=== PATIENT | male | born 1960 | race Two or more races ===

== ENCOUNTER 2025-08-22 11:59 | Inpatient (IN) | payer OTHER ==
[~2025-08-22] VITALS: Ht 138.4 cm; Wt 73.4 kg
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
[2025-08-22 13:32] LABS: Chloride 103 mmol/L (98-107)
[2025-08-22 13:33] LABS: Anion Gap 10 (5-15); Carbon Dioxide 22 mmol/L (20-31)
[2025-08-22 13:34] LABS: Calcium 9.4 mg/dL (8.7-10.4)
[2025-08-22 13:38] LABS: BUN/Creatinine Ratio 21.1 (10.0-20.0); Hematocrit 48.2 % (41.0-53.0); Hemoglobin 16.0 g/dL (13.5-17.5); Mean Corpuscular Hemoglobin 28.8 pg (28.0-32.0); Mean Corpuscular Volume 86.7 fL (80.0-100.0); Nucleated Red Blood Cells % 0.0 %
[2025-08-22 13:48] LABS: Blood Urea Nitrogen 38 mg/dL (9-23); Glucose 329 mg/dL (74-106); Potassium 5.4 mmol/L (3.5-5.1); Sodium 135 mmol/L (136-145)
--- NOTE | 2025-08-22 14:06 | DVH ---
XY CHEST TWO VIEWS ROUTINE CLINICAL HISTORY: cp COMPARISON: None TECHNIQUE: Frontal and lateral view of the chest was obtained FINDINGS: Lines and Tubes: None Lungs: No focal consolidation. Pleura: No effusion. No pneumothorax. Cardiomediastinal contours: Unremarkable Bones: No acute osseous abnormality. IMPRESSION: No acute cardiopulmonary disease.
--- NOTE | 2025-08-22 19:20 | ECG ---
[facility] [place] Test Date: 2025-08-22 Test Time: 14:56:33 Pat Name: ROBERTO CARLOS CORNELIUS Department: [facility] ED Patient ID: [id number] Room: 0218T Gender: M Registration Rep: : 1960 Requested By: CHRISTOPH FONG Order Number: [id number] Reading MD: Rufus Temple Measurements Intervals [place] Rate: 98 P: 64 NV: 146 QRS: -74 QRSD: 136 T: 29 QT: 394 QTc: 504 Interpretive Statements Sinus rhythm Right bundle branch block Inferior infarct, old Abnormal lateral Q waves Baseline wander in lead(s) II,III,aVF Electronically Signed On 08-27-2025 14:20:05 PDT by Rufus Temple Please click the below link to view image of tracing.
--- NOTE | 2025-08-22 19:20 | ECG ---
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
[2025-08-22] MEDS ORDERED: ACETAMINOPHEN 325 MG TAB PO PRN (21:00)
[2025-08-22] MEDS ORDERED: ONDANSETRON HCL 4 MG/2 ML VIAL IV PRN (21:00)
[2025-08-22] MEDS ORDERED: DEXTROSE (50%) 50ML SYRG IV PRN (21:00)
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
[2025-08-22 21:30] LABS: Alanine Aminotransferase 21.0 U/L (7-40); Albumin 4.4 g/dL (3.2-4.8); Alkaline Phosphatase 108.0 U/L (46-116); Bilirubin, Direct 0.1 mg/dL (<0.3); Bilirubin, Total 0.5 mg/dL (0.2-1.0); Total Protein 7.4 g/dL (5.7-8.2)
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
--- NOTE | 2025-08-22 22:05 | DVH ---
EXAM: CT HEAD WITHOUT CONTRAST INDICATION: evaluate for mass TECHNIQUE: CT images of the head were obtained without administration of IV contrast. CT scans at [facility] facility use dose modulation, iterative reconstruction, and/or weight based dosing when appropriate to reduce radiation dose to as low as reasonably achievable. COMPARISON: None FINDINGS: PARENCHYMA: No acute hemorrhage. There is no mass effect, midline shift, or herniation. There is pres ervation of the aguilar white differentiation. Mild scattered hypoattenuation along the periventricular, centrum semiovale, and deep white matter tracts, which are nonspecific however statistically most li frances represent chronic microvascular ischemic change. VENTRICLES: No hydrocephalus. EXTRA-AXIAL SPACES: No extra-axial fluid collections. OTHER: The bony structures are intact. Inconspicuous air-fluid level with osteoneogenesis of the rig ht maxillary sinus IMPRESSION: 1. No CT evidence of an acute intracranial abnormality.
--- NOTE | 2025-08-22 22:13 | ECG ---
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
[2025-08-23 05:33] LABS: Hematocrit 43.7 % (41.0-53.0); Hemoglobin 14.7 g/dL (13.5-17.5); Mean Corpuscular Hemoglobin 29.0 pg (28.0-32.0); Mean Corpuscular Volume 86.3 fL (80.0-100.0); Nucleated Red Blood Cells % 0.0 %
[2025-08-23 05:56] LABS: Alanine Aminotransferase 18 U/L (7-40); Albumin 4.3 g/dL (3.2-4.8); Alkaline Phosphatase 99 U/L (46-116); Anion Gap 13 (5-15); BUN/Creatinine Ratio 23.8 (10.0-20.0); Bilirubin, Total 0.4 mg/dL (0.2-1.0); Blood Urea Nitrogen 43 mg/dL (9-23); Calcium 9.1 mg/dL (8.7-10.4); Carbon Dioxide 22 mmol/L (20-31); Chloride 101 mmol/L (98-107); Glucose 311 mg/dL (74-106); Potassium 4.9 mmol/L (3.5-5.1); Sodium 136 mmol/L (136-145); Total Protein 7.7 g/dL (5.7-8.2)
[2025-08-23 08:00] VITALS: PULSE 99; RESP 18; O2SAT 97
[2025-08-23 08:41] LABS: Amphetamine Screen, Urine Pos (NEGATIVE); Barbiturate Scree,Urine Neg (NEGATIVE); Benzodiazephine Screen, Urine Neg (NEGATIVE); Cannabinoid Screen, Urine Neg (NEGATIVE); Cocaine Screen, Urine Neg (NEGATIVE); Opiate Scree,Urine Neg (NEGATIVE); Phencyclidine Screen, Urine Neg (NEGATIVE)
[2025-08-23 08:42] LABS: Urine Protein, UAD TRACE (Negative)
[2025-08-23] MEDS ORDERED: DEXTROSE (50%) 50ML SYRG IV PRN (11:00)
[2025-08-23 12:44] LABS: Hematocrit 42.7 % (41.0-53.0); Hemoglobin 14.2 g/dL (13.5-17.5); Mean Corpuscular Hemoglobin 28.5 pg (28.0-32.0); Mean Corpuscular Volume 85.9 fL (80.0-100.0); Nucleated Red Blood Cells % 0.0 %
[2025-08-23 12:53] LABS: Chloride 103 mmol/L (98-107); Potassium 4.4 mmol/L (3.5-5.1)
[2025-08-23 12:54] LABS: Anion Gap 10 (5-15); Carbon Dioxide 22 mmol/L (20-31); Sodium 135 mmol/L (136-145)
[2025-08-23 12:55] LABS: Calcium 8.7 mg/dL (8.7-10.4)
[2025-08-23 12:59] LABS: BUN/Creatinine Ratio 25.2 (10.0-20.0)
[2025-08-23 13:01] LABS: Blood Urea Nitrogen 37 mg/dL (9-23); Glucose 345 mg/dL (74-106)
[2025-08-23] MEDS: InsuLIN REG 1unit/0.01ml Soln (100units/ml) IV ONE (13:07)
[2025-08-23] MEDS: SODIUM ZIRCONIUM CYCL 10 GM PAK PO ONE (13:07)
[2025-08-23] MEDS: DEXTROSE (50%) 50ML SYRG IV ONE (13:07)
[2025-08-23] MEDS: SODIUM CHLORIDE 0.9% 1,000 ML IV ONE (13:07)
[2025-08-23] MEDS: InsuLIN REG 1unit/0.01ml Soln (100units/ml) SC SCH ×3 (13:09→22:00)
[2025-08-23] MEDS: ATORVASTATIN 20 MG TAB PO SCH (13:14)
[2025-08-23] MEDS: ENOXAPARIN SOD 40 MG/0.4 ML SYRINGE SC SCH (13:15)
[2025-08-23] MEDS: INSULIN LANTUS (GLARGINE) 1 /0.01ml (100units/ml) SC SCH (13:16)
[2025-08-23] MEDS: ACCU-CHEK COMFORT CURVE STRIP VI SCH ×2 (13:23→13:24)
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
[2025-08-23 16:33] VITALS: BP 136/88; PULSE 98; RESP 17; TEMP 97; TEMP 97.7; O2SAT 99
[2025-08-23 16:44] VITALS: RESP 18; O2SAT 95
[2025-08-23 16:47] VITALS: BP_SYST 136; BP_SYST 157; BP_DIAS 111; BP_DIAS 88; PULSE 98; RESP 18; TEMP 97.7; O2SAT 98
[2025-08-23 20:00] VITALS: PULSE 91; RESP 17; O2SAT 95
[2025-08-23 21:00] VITALS: BP 121/81; PULSE 89; RESP 18; TEMP 98.2; O2SAT 93
[2025-08-24] VITALS (9 sets, daily range): BP systolic 102–149; BP diastolic 71–98; PULSE 85–108; RESP 14–20; TEMP 97.9–98.3; O2SAT 95–99
[2025-08-24 07:10] LABS: Hematocrit 43.1 % (41.0-53.0); Hemoglobin 14.5 g/dL (13.5-17.5); Mean Corpuscular Hemoglobin 28.8 pg (28.0-32.0); Mean Corpuscular Volume 85.4 fL (80.0-100.0); Nucleated Red Blood Cells % 0.1 %
[2025-08-24 07:14] LABS: Anion Gap 11 (5-15); Calcium 9.2 mg/dL (8.7-10.4); Carbon Dioxide 23 mmol/L (20-31); Chloride 104 mmol/L (98-107); Potassium 3.8 mmol/L (3.5-5.1); Sodium 138 mmol/L (136-145)
[2025-08-24 07:20] LABS: BUN/Creatinine Ratio 25.2 (10.0-20.0)
[2025-08-24 07:21] LABS: Blood Urea Nitrogen 30 mg/dL (9-23); Glucose 129 mg/dL (74-106)
[2025-08-24 12:03] LABS: Hepatitis B Surface Antigen Negative (Negative); Hepatitis C Antibody Negative (Negative)
[2025-08-24] MEDS: MORPHINE SULFATE INJ 2 MG/ml SYRG IV PRN (12:15)
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
[2025-08-24] MEDS: POLYETHYLENE GLYCOL 17 GM PWDR PO ONE (16:14)
--- NOTE | 2025-08-24 16:45 | DVHPN2 ---
Subjective I am assuming the care of the patient from today onwards. Patient is complaining of chest pain. Changes from previous H/P or p: No Changes Eyes: No Pain, No Vision change, No Conjunctivae inflammation, No Eyelid inflammation, No Other, No Redness ENT: No Ear pain, No Ear discharge, No Nose pain, No Nose discharge, No Nose congestion, No Mouth pain, No Mouth swelling, No Throat pain, No Throat swelling, No Other Cardiovascular: Chest Pain; No Palpitations, No Orthopnea, No Paroxysmal Noc. Dyspnea, No Edema, No Lt Headedness, No Other Respiratory: No Cough, No Dry, No Shortness of breath, No SOB with excertion, No Wheezing, No Hemoptysis, No Pleuritic Pain, No Sputum, No Other Genitourinary: No Dysuria, No Frequency, No Incontinence, No Hematuria, No Retention, No Other Skin: No Rash, No Lesions, No Jaundice, No Bruising, No Other Objective Vitals Vital Signs Date Time Temp Pulse Resp B/P (MAP) Pulse Ox O2 Delivery O2 Flow Rate FiO2 08/24/25 13:00 98.3 85 18 149/87 (107) 99 98.3 08/24/25 08:00 Room Air* 0 21 Intake/Output Intake and Output 08/24/25 07:00 Intake Total 1300 ml Output Total 300 ml Balance 1000 ml Intake Oral 300 ml IV Total 1000 ml Output Urine Total 300 ml # Voids 1 Exam HEENT pupils are reactive Neck is supple CV is S1-S2 regular rate and rhythm Respiratory are clear GI positive bowel sound 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 Medications Current Medications Medications Dose Ordered Sig/Lydia Route Start Time Stop Time Status Last Admin Dose Admin Acetaminophen/ Hydrocodone Bitart 1 tab Q4HP PRN PO 08/22/25 21:00 Ondansetron HCl 4 mg Q4HP PRN IV 08/22/25 21:00 Acetaminophen 650 mg Q6HP PRN PO 08/22/25 21:00 Morphine Sulfate 2 mg Q4HPRN PRN IV 08/22/25 21:00 08/24/25 12:15 2 MG Enoxaparin Sodium 40 mg DAILY SC 08/22/25 21:00 08/24/25 09:46 40 MG Insulin Glargine 15 units HS SC 08/22/25 22:00 08/23/25 22:00 15 UNITS Dextrose 50 ml UD PRN IV 08/22/25 21:00 Cancel Aspirin 81 mg DAILY PO 08/23/25 10:00 08/24/25 09:46 81 MG Atorvastatin Calcium 40 mg HS PO 08/22/25 22:00 08/23/25 23:08 40 MG Diagnostic Test (Pha) 1 strip ACHS 08/23/25 11:30 08/24/25 16:28 1 STRIP Insulin Human Regular HS SC 08/23/25 22:00 08/23/25 22:00 2 UNITS Insulin Human Regular AC SC 08/23/25 11:30 08/24/25 16:28 3 UNITS Dextrose 50 ml UD PRN IV 08/23/25 11:00 Laboratory Results Laboratory Tests 08/24/25 05:14 Chemistry Test 08/24/25 05:14 Calcium Level 9.2 mg/dL (8.7-10.4) Coagulation Test 08/24/25 16:23 Prothrombin Time Pending Prothrombin Time INR Pending Activated Partial Thromboplast Time Pending Urinalysis Test 08/22/25 08:10 Urine Color Light-yellow (Yellow) Urine Clarity Clear (Clear) Urine pH 5.0 (5.0-9.0) Urine Specific [place] 1.024 (1.001-1.035) Urine Protein Trace (Negative) H Urine Ketones 1+ (Negative) H Urine Blood Negative /uL (Negative) Urine Nitrite Negative (Negative) Urine Bilirubin Negative (Negative) Urine Urobilinogen Normal mg/dL (Negative) Urine Leukocyte Esterase Negative /uL (Negative) Urine RBC 2 /hpf (0 - 3) Urine Microscopic WBC 1 /HPF (0-3) Urine Squamous Epithelial Cells Few /hpf (<5) Urine Bacteria None seen /hpf (None Seen) Urine Glucose 4+ mg/dL (Normal) H Assessment/Plan Assessment/Plan 65-year-old male with a known history of hypertension, diabetes mellitus type 2, previous history of valley fever, chronic methamphetamine use presented to the hospital with chest pain found to have 1. Chest pain with a mildly elevated troponin NSTEMI ruled out acute [place] 2. Syncope 3. Diabetes mellitus type 2 4. Hypertension 5. Acute kidney injury suspected secondary to vasomotor nephropathy currently improving 6. Chronic methamphetamine use 7. History of valley fever -continue current management, 2D echo, cardiology consultation. Plan discussed with: Patient Date of Service: Aug 24, 2025 Billing Provider: THOMAS SPEARS MD Common Visit Codes: [id number] INP/OBS CARE(HIGH) THOMAS SPEARS MD Aug 24, 2025 16:44
[2025-08-24 17:04] LABS: INR 1.0 (0.9-1.15); Partial Thromboplastin Time 34.9 SEC (24.5-34.5); Prothrombin Time 10.6 sec (9.3-11.8)
[2025-08-24 17:17] LABS: Free T4 (Free Thyroxine) 0.86 ng/dL (0.89-1.76)
[2025-08-24] MEDS ORDERED: METOPROLOL SUCCINATE XL 50 MG TAB PO ONE (18:15)
--- NOTE | 2025-08-24 18:30 | DVHSR ---
APPROVED REPORT EXAM: Two-dimensional and M-mode echocardiogram with Doppler and color Doppler. Blood Pressure: 123/68 mmHg INDICATION Chest Pain RISK FACTORS Height: 62, Weight: 126 DIMENSIONS LVDd3.6 (3.8-5.7cm)LA (2D)3.5 (1.9-4.0cm)Aortic Root3.9 (2.0-3.7cm) LVDs2.2 (2.5-4.0cm)LA (MM) (1.9-4.0cm)Aortic Cusp Exc1.5 (1.5-2.0cm) EF (%) 72.0 (55-70%)Rt. Atrium (1.9-4.0cm)Asc. Aorta cm Mitral Valve MitralMitral Stenosis E wave0.87m/sMV Mean GR.mmHg A wave1.22m/sMV Peak GR.mmHg E/A ratio0.72D MVAcm2 DECEL [id number] 1/2 Timems Aortic Valve Aortic ValveAortic Stenosis V10.82m/Hyacinth Mean GR.2mmHg V21.00m/Hyacinth Peak GR.4mmHg LVOT Diameter2.0 (1.8-2.4cm)Doppler AVA2.57cm2 Tricuspid Valve TR Velocity2.44m/s [id number] Conclusion lvef 65% mioderate LVH normal rv function no severe valve abnormalities noted
[2025-08-24] MEDS: METOPROLOL SUCCINATE XL 50 MG TAB PO ONE (18:55)
[2025-08-25] VITALS (10 sets, daily range): BP systolic 98–143; BP diastolic 63–96; PULSE 62–93; RESP 16–20; TEMP 97.6–98.5; O2SAT 97–100
[2025-08-25] MEDS: METOPROLOL SUCCINATE XL 50 MG TAB PO SCH (08:43)
--- NOTE | 2025-08-25 14:24 | DVHPN2 ---
Consult Progress Note Subjective Other Systems: The patient is in normal sinus rhythm on registered radiation therapist at time of assessment. The patient is still complaining of chest pain at time of assessment Objective vital signs Vital Sign Date Time Temp Pulse Resp B/P (MAP) Pulse Ox O2 Delivery O2 Flow Rate FiO2 08/25/25 12:58 97.6 80 18 119/82 (94) 98 97.6 08/25/25 08:30 Room Air* 0 21 Total Intake and Output 08/24/25 08/24/25 08/25/25 15:00 23:00 07:00 Intake Total 580 ml 500 ml Output Total 300 ml 400 ml Balance 280 ml 100 ml medications Current Medications Medications Dose Ordered Sig/Lydia Route Start Time Stop Time Status Last Admin Dose Admin Acetaminophen/ Hydrocodone Bitart 1 tab Q4HP PRN PO 08/22/25 21:00 Ondansetron HCl 4 mg Q4HP PRN IV 08/22/25 21:00 Acetaminophen 650 mg Q6HP PRN PO 08/22/25 21:00 Morphine Sulfate 2 mg Q4HPRN PRN IV 08/22/25 21:00 08/25/25 10:08 2 MG Enoxaparin Sodium 40 mg DAILY SC 08/22/25 21:00 08/25/25 08:42 40 MG Insulin Glargine 15 units HS SC 08/22/25 22:00 08/24/25 22:07 15 UNITS Dextrose 50 ml UD PRN IV 08/22/25 21:00 Cancel Aspirin 81 mg DAILY PO 08/23/25 10:00 08/25/25 08:42 81 MG Atorvastatin Calcium 40 mg HS PO 08/22/25 22:00 08/24/25 22:14 40 MG Diagnostic Test (Pha) 1 strip ACHS 08/23/25 11:30 08/25/25 11:32 1 STRIP Insulin Human Regular HS SC 08/23/25 22:00 08/24/25 22:07 3 UNITS Insulin Human Regular AC SC 08/23/25 11:30 08/25/25 11:34 9 UNITS Dextrose 50 ml UD PRN IV 08/23/25 11:00 Metoprolol Succinate 25 mg DAILY PO 08/25/25 10:00 08/25/25 08:43 25 MG Examination: GENERAL:Normal, LUNGS:Normal, CVS:Normal, NEURO:Normal laboratory and microbiology Laboratory Tests 08/24/25 05:14 Test 08/24/25 05:14 Range/Units Serum Glucose 129 #H 74-106 mg/dL Problem List/Assessment/Plan Problem List/Assessment/Plan NSTEMI, rule out coronary artery disease Syncope, rule out cardiac etiology Hypertension Type 2 diabetes mellitus, uncontrolled (Hgb A1C >14%) Acute kidney injury, resolving History of valley fever Methamphetamine use Plan/recommendations (Dr. Persaud): Plan discussed with . A transthoracic echocardiogram reveals an EF of 65%. The patient continues to report chest pain. Given patient elevated troponin level and multiple comorbidities, the patient was offered a coronary angiogram with left heart catheterization. The procedure was discussed with the patient in full detail including risks and benefits. Risks include but are not limited to bleeding, contrast-induced nephropathy, coronary dissection, stroke, and even . The patient understands and is agreeable to undergo the procedure. We will tentatively schedule the patient on 08/27/2025. In the meantime, continue with single antiplatelet therapy and lipid-lowering agent. Continue with close cardiac surveillance and notify cardiology team immediately for any ECG changes. Thank you for allowing us to care for this patient. Please call with any questions or concerns. This medical document was created using an electronic medical record system with voice recognition software and computerized dictation system. Although this document has been carefully reviewed, there might still be some phonetic and typographical errors. Occasional wrong-word or ``sound-alike substitutions may have occurred due to the inherent limitations of voice recognition software. These areas are purely typographical due to imperfections of the software programs and do not reflect any compromise in the patient's medical care. Please read the chart carefully and recognize, using context, where these substitutions have occurred. Plan discussed with: Patient Dietary Evaluation Review Recommendations by RD: Dietary education by RD Comments: 1) Continue 45g [facility] cardiac diet 2) Advise patient to limit intake of added sugar including sugar-sweetened beverages, pastries, dessert, etc. Eat a consistent intake of complex carbohydrates throughout the day, paired with protein to promote glycemic control 3) Refer to outpatient RD/CDCES for diabetes education and weight management 4) Consider referral to endocrinology 5) Follow-up with cardiology 6) Follow-up with renal social worker r/t methamphetamine abuse 7) Continue to monitor I&O, labs, and skin integrity Expected Outcomes/Goals: 1) appetite and labs to improve 2) gradual wt loss 3) f/u in 3-5 days Date of Service: Aug 25, 2025 Billing Provider: DANYELLE MAGAÑA Common Visit Codes: [id number] INP/OBS CARE(HIGH) DANYELLE MAGAÑA Aug 25, 2025 14:23
--- NOTE | 2025-08-25 17:58 | DVHPN2 ---
Subjective I am assuming the care of the patient from today onwards. Patient is complaining of chest pain. Changes from previous H/P or p: No Changes Eyes: No Pain, No Vision change, No Conjunctivae inflammation, No Eyelid inflammation, No Other, No Redness ENT: No Ear pain, No Ear discharge, No Nose pain, No Nose discharge, No Nose congestion, No Mouth pain, No Mouth swelling, No Throat pain, No Throat swelling, No Other Cardiovascular: Chest Pain; No Palpitations, No Orthopnea, No Paroxysmal Noc. Dyspnea, No Edema, No Lt Headedness, No Other Respiratory: No Cough, No Dry, No Shortness of breath, No SOB with excertion, No Wheezing, No Hemoptysis, No Pleuritic Pain, No Sputum, No Other Genitourinary: No Dysuria, No Frequency, No Incontinence, No Hematuria, No Retention, No Other Skin: No Rash, No Lesions, No Jaundice, No Bruising, No Other Objective Vitals Vital Signs Date Time Temp Pulse Resp B/P (MAP) Pulse Ox O2 Delivery O2 Flow Rate FiO2 08/25/25 17:00 98.3 62 18 103/63 (76) 100 98.3 08/25/25 08:30 Room Air* 0 21 Intake/Output Intake and Output 08/25/25 07:00 Intake Total 1080 ml Output Total 700 ml Balance 380 ml Intake Oral 1080 ml Output Urine Total 700 ml # Voids 3 Exam HEENT pupils are reactive Neck is supple CV is S1-S2 regular rate and rhythm Respiratory are clear GI positive bowel sound Extremity no edema [employer] no motor deficit Medications Current Medications Medications Dose Ordered Sig/Lydia Route Start Time Stop Time Status Last Admin Dose Admin Acetaminophen/ Hydrocodone Bitart 1 tab Q4HP PRN PO 08/22/25 21:00 Ondansetron HCl 4 mg Q4HP PRN IV 08/22/25 21:00 Acetaminophen 650 mg Q6HP PRN PO 08/22/25 21:00 Morphine Sulfate 2 mg Q4HPRN PRN IV 08/22/25 21:00 08/25/25 10:08 2 MG Enoxaparin Sodium 40 mg DAILY SC 08/22/25 21:00 08/25/25 08:42 40 MG Insulin Glargine 15 units HS SC 08/22/25 22:00 08/24/25 22:07 15 UNITS Dextrose 50 ml UD PRN IV 08/22/25 21:00 Cancel Aspirin 81 mg DAILY PO 08/23/25 10:00 08/25/25 08:42 81 MG Atorvastatin Calcium 40 mg HS PO 08/22/25 22:00 08/24/25 22:14 40 MG Diagnostic Test (Pha) 1 strip ACHS 08/23/25 11:30 08/25/25 16:34 1 STRIP Insulin Human Regular HS SC 08/23/25 22:00 08/24/25 22:07 3 UNITS Insulin Human Regular AC SC 08/23/25 11:30 08/25/25 16:35 3 UNITS Dextrose 50 ml UD PRN IV 08/23/25 11:00 Metoprolol Succinate 25 mg DAILY PO 08/25/25 10:00 08/25/25 08:43 25 MG Laboratory Results Laboratory Tests 08/24/25 05:14 Urinalysis Test 08/22/25 08:10 Urine Color Light-yellow (Yellow) Urine Clarity Clear (Clear) Urine pH 5.0 (5.0-9.0) Urine Specific [place] 1.024 (1.001-1.035) Urine Protein Trace (Negative) H Urine Ketones 1+ (Negative) H Urine Blood Negative /uL (Negative) Urine Nitrite Negative (Negative) Urine Bilirubin Negative (Negative) Urine Urobilinogen Normal mg/dL (Negative) Urine Leukocyte Esterase Negative /uL (Negative) Urine RBC 2 /hpf (0 - 3) Urine Microscopic WBC 1 /HPF (0-3) Urine Squamous Epithelial Cells Few /hpf (<5) Urine Bacteria None seen /hpf (None Seen) Urine Glucose 4+ mg/dL (Normal) H Assessment/Plan Assessment/Plan 65-year-old male with a known history of hypertension, diabetes mellitus type 2, previous history of valley fever, chronic methamphetamine use presented to the hospital with chest pain found to have 1. Chest pain with a mildly elevated troponin NSTEMI ruled out acute [place] 2. Syncope 3. Diabetes mellitus type 2 4. Hypertension 5. Acute kidney injury suspected secondary to vasomotor nephropathy currently improving 6. Chronic methamphetamine use 7. History of valley fever -continue current management, left heart catheterization on Wednesday. Plan discussed with: Patient My Orders Orders - THOMAS SPEARS MD Procedure Category Date Status Time Code Status CODE 08/25/25 Transmitted 17:17 Date of Service: Aug 25, 2025 Billing Provider: THOMAS SPEARS MD Common Visit Codes: [id number] INP/OBS CARE(HIGH) THOMAS SPEARS MD Aug 25, 2025 17:58
[2025-08-26] VITALS (7 sets, daily range): BP systolic 107–135; BP diastolic 68–95; PULSE 57–103; RESP 18–22; TEMP 96.8–98.6; O2SAT 98–99
[2025-08-26 06:22] LABS: Hematocrit 44.6 % (41.0-53.0); Hemoglobin 15.2 g/dL (13.5-17.5); Mean Corpuscular Hemoglobin 28.9 pg (28.0-32.0); Mean Corpuscular Volume 84.7 fL (80.0-100.0); Nucleated Red Blood Cells % 0.2 %
[2025-08-26 06:41] LABS: Anion Gap 10 (5-15); Carbon Dioxide 26 mmol/L (20-31); Chloride 99 mmol/L (98-107); Potassium 4.7 mmol/L (3.5-5.1)
[2025-08-26 06:42] LABS: Calcium 9.6 mg/dL (8.7-10.4)
[2025-08-26 06:47] LABS: BUN/Creatinine Ratio 18.9 (10.0-20.0)
[2025-08-26 06:53] LABS: Blood Urea Nitrogen 24 mg/dL (9-23); Glucose 118 mg/dL (74-106); Sodium 135 mmol/L (136-145)
--- NOTE | 2025-08-26 10:16 | DVHPN2 ---
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 Patient denies chest pain at time of assessment. He reports chest pain overnight. Objective vital signs Vital Sign Date Time Temp Pulse Resp B/P (MAP) Pulse Ox O2 Delivery O2 Flow Rate FiO2 08/26/25 09:03 86 110/68 08/26/25 07:37 Room Air* 0 21 08/26/25 07:00 96.8 22 98 96.8 Total Intake and Output 08/25/25 08/25/25 08/26/25 15:00 23:00 07:00 Intake Total 2301 ml 850 ml Output Total 1325 ml 1100 ml Balance 976 ml -250 ml medications Current Medications Medications Dose Ordered Sig/Lydia Route Start Time Stop Time Status Last Admin Dose Admin Acetaminophen/ Hydrocodone Bitart 1 tab Q4HP PRN PO 08/22/25 21:00 Ondansetron HCl 4 mg Q4HP PRN IV 08/22/25 21:00 Acetaminophen 650 mg Q6HP PRN PO 08/22/25 21:00 Morphine Sulfate 2 mg Q4HPRN PRN IV 08/22/25 21:00 08/25/25 20:23 2 MG Enoxaparin Sodium 40 mg DAILY SC 08/22/25 21:00 08/25/25 08:42 40 MG Insulin Glargine 15 units HS SC 08/22/25 22:00 08/25/25 22:05 15 UNITS Dextrose 50 ml UD PRN IV 08/22/25 21:00 Cancel Aspirin 81 mg DAILY PO 08/23/25 10:00 08/26/25 09:03 81 MG Atorvastatin Calcium 40 mg HS PO 08/22/25 22:00 08/25/25 22:03 40 MG Diagnostic Test (Pha) 1 strip ACHS 08/23/25 11:30 08/26/25 06:15 1 STRIP Insulin Human Regular HS SC 08/23/25 22:00 08/25/25 22:05 2 UNITS Insulin Human Regular AC SC 08/23/25 11:30 08/26/25 06:14 2 UNITS Dextrose 50 ml UD PRN IV 08/23/25 11:00 Metoprolol Succinate 25 mg DAILY PO 08/25/25 10:00 08/25/25 08:43 25 MG Examination: GENERAL:Normal, LUNGS:Normal, CVS:Normal, NEURO:Normal laboratory and microbiology Laboratory Tests 08/26/25 04:43 Test 08/26/25 04:43 Range/Units Serum Glucose 118 H 74-106 mg/dL Problem List/Assessment/Plan Problem List/Assessment/Plan NSTEMI, rule out coronary artery disease Syncope, rule out cardiac etiology Hypertension Type 2 diabetes mellitus, uncontrolled (Hgb A1C >14%) Acute kidney injury, resolving History of valley fever Methamphetamine use Plan/recommendations (Dr. Barlow): Plan discussed with . A transthoracic echocardiogram reveals an EF of 65%. The patient reported chest pain overnight. Given patient elevated troponin level and multiple comorbidities, the patient was offered a coronary angiogram with left heart catheterization. The procedure was discussed with the patient in full detail including risks and benefits. Risks include but are not limited to bleeding, contrast-induced nephropathy, coronary dissection, stroke, and even . The patient understands and is agreeable to undergo the procedure. We will tentatively schedule the patient on 08/27/2025. In the meantime, continue with single antiplatelet therapy and lipid-lowering agent. Continue with orthostatic vital signs. Carotid ultrasound negative for significant stenosis in the left and/or right carotid system. Continue with close cardiac surveillance and notify cardiology team immediately for any ECG changes. Thank you for allowing us to care for this patient. Please call with any questions or concerns. This medical document was created using an electronic medical record system with voice recognition software and computerized dictation system. Although this document has been carefully reviewed, there might still be some phonetic and typographical errors. Occasional wrong-word or ``sound-alike substitutions may have occurred due to the inherent limitations of voice recognition software. These areas are purely typographical due to imperfections of the software programs and do not reflect any compromise in the patient's medical care. Please read the chart carefully and recognize, using context, where these substitutions have occurred. Plan discussed with: Patient Dietary Evaluation Review Recommendations by RD: Dietary education by RD Comments: 1) Continue 45g [facility] [place] cardiac diet 2) Advise patient to limit intake of added sugar including sugar-sweetened beverages, pastries, dessert, etc. Eat a consistent intake of complex carbohydrates throughout the day, paired with protein to promote glycemic control 3) Refer to outpatient RD/CD[facility] for diabetes education and weight management 4) Consider referral to endocrinology 5) Follow-up with cardiology 6) Follow-up with social research assistant r/t methamphetamine abuse 7) Continue to monitor I&O, labs, and skin integrity Expected Outcomes/Goals: 1) appetite and labs to improve 2) gradual wt loss 3) f/u in 3-5 days Date of Service: Aug 26, 2025 Billing Provider: DANYELLE MAGAÑA Common Visit Codes: [id number] INP/OBS CARE(HIGH) DAWSON BARLOW MD 08/26/25 1447: DANYELLE MAGAÑA Aug 26, 2025 10:15 DAWSON BARLOW MD Aug 26, 2025 14:47
--- NOTE | 2025-08-26 16:54 | DVHPN2 ---
Subjective Patient currently scheduled for left heart catheterization on Wednesday. Changes from previous H/P or p: No Changes Eyes: No Pain, No Vision change, No Conjunctivae inflammation, No Eyelid inflammation, No Other, No Redness ENT: No Ear pain, No Ear discharge, No Nose pain, No Nose discharge, No Nose congestion, No Mouth pain, No Mouth swelling, No Throat pain, No Throat swelling, No Other Cardiovascular: Chest Pain; No Palpitations, No Orthopnea, No Paroxysmal Noc. Dyspnea, No Edema, No Lt Headedness, No Other Respiratory: No Cough, No Dry, No Shortness of breath, No SOB with excertion, No Wheezing, No Hemoptysis, No Pleuritic Pain, No Sputum, No Other Genitourinary: No Dysuria, No Frequency, No Incontinence, No Hematuria, No Retention, No Other Skin: No Rash, No Lesions, No Jaundice, No Bruising, No Other Objective Vitals Vital Signs Date Time Temp Pulse Resp B/P (MAP) Pulse Ox O2 Delivery O2 Flow Rate FiO2 08/26/25 12:39 98.6 90 20 120/69 (86) 98 98.6 08/26/25 07:37 Room Air* 0 21 Intake/Output Intake and Output 08/26/25 07:00 Intake Total 3151 ml Output Total 2425 ml Balance 726 ml Intake Oral 3151 ml Output Urine Total 2425 ml # Bowel Movements 2 Exam HEENT pupils are reactive Neck is supple CV is S1-S2 regular rate and rhythm Respiratory are clear GI positive bowel sound Extremity no edema 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 Medications Current Medications Medications Dose Ordered Sig/Lydia Route Start Time Stop Time Status Last Admin Dose Admin Acetaminophen/ Hydrocodone Bitart 1 tab Q4HP PRN PO 08/22/25 21:00 Ondansetron HCl 4 mg Q4HP PRN IV 08/22/25 21:00 Acetaminophen 650 mg Q6HP PRN PO 08/22/25 21:00 Morphine Sulfate 2 mg Q4HPRN PRN IV 08/22/25 21:00 08/25/25 20:23 2 MG Enoxaparin Sodium 40 mg DAILY SC 08/22/25 21:00 08/25/25 08:42 40 MG Insulin Glargine 15 units HS SC 08/22/25 22:00 08/25/25 22:05 15 UNITS Dextrose 50 ml UD PRN IV 08/22/25 21:00 Cancel Aspirin 81 mg DAILY PO 08/23/25 10:00 08/26/25 09:03 81 MG Atorvastatin Calcium 40 mg HS PO 08/22/25 22:00 08/25/25 22:03 40 MG Diagnostic Test (Pha) 1 strip ACHS 08/23/25 11:30 08/26/25 11:00 1 STRIP Insulin Human Regular HS SC 08/23/25 22:00 08/25/25 22:05 2 UNITS Insulin Human Regular AC SC 08/23/25 11:30 08/26/25 11:01 3 UNITS Dextrose 50 ml UD PRN IV 08/23/25 11:00 Metoprolol Succinate 25 mg DAILY PO 08/25/25 10:00 08/25/25 08:43 25 MG Laboratory Results Laboratory Tests 08/26/25 04:43 Chemistry Test 08/26/25 04:43 Calcium Level 9.6 mg/dL (8.7-10.4) Urinalysis Test 08/22/25 08:10 Urine Color Light-yellow (Yellow) Urine Clarity Clear (Clear) Urine pH 5.0 (5.0-9.0) Urine Specific [place] 1.024 (1.001-1.035) Urine Protein Trace (Negative) H Urine Ketones 1+ (Negative) H Urine Blood Negative /uL (Negative) Urine Nitrite Negative (Negative) Urine Bilirubin Negative (Negative) Urine Urobilinogen Normal mg/dL (Negative) Urine Leukocyte Esterase Negative /uL (Negative) Urine RBC 2 /hpf (0 - 3) Urine Microscopic WBC 1 /HPF (0-3) Urine Squamous Epithelial Cells Few /hpf (<5) Urine Bacteria None seen /hpf (None Seen) Urine Glucose 4+ mg/dL (Normal) H Assessment/Plan Assessment/Plan 65-year-old male with a known history of hypertension, diabetes mellitus type 2, previous history of valley fever, chronic methamphetamine use presented to the hospital with chest pain found to have 1. Chest pain with a mildly elevated troponin NSTEMI ruled out acute OR 2. Syncope 3. Diabetes mellitus type 2 4. Hypertension 5. Acute kidney injury suspected secondary to vasomotor nephropathy currently improving 6. Chronic methamphetamine use 7. History of valley fever -continue current management, left heart catheterization on Wednesday. Plan discussed with: Patient, Other My Orders Orders - THOMAS SPEARS MD Procedure Category Date Status Time Code Status CODE 08/25/25 Transmitted 17:17 Date of Service: Aug 26, 2025 Billing Provider: THOMAS SPEARS MD Common Visit Codes: [id number] INP/OBS CARE(HIGH) THOMAS SPEARS MD Aug 26, 2025 16:54
[2025-08-27] VITALS (14 sets, daily range): BP systolic 0–166; BP diastolic 49–93; PULSE 81–105; RESP 14–22; TEMP 97.8–98.3; O2SAT 96–99
--- NOTE | 2025-08-27 05:19 | DVH ---
CHEST RADIOGRAPH Indication: for procedure Technique: Single frontal view of the chest was obtained COMPARISON: XY CHEST TWO VIEWS ROUTINE on DOS: 08/22/25 FINDINGS: Lines and Tubes: None Lungs: Clear Pleura: No effusion. No pneumothorax. Cardiomediastinal contours: Unremarkable Bones: Unremarkable IMPRESSION: No acute disease.
[2025-08-27 05:57] LABS: Hematocrit 41.7 % (41.0-53.0); Hemoglobin 14.1 g/dL (13.5-17.5); Mean Corpuscular Hemoglobin 28.7 pg (28.0-32.0); Mean Corpuscular Volume 84.9 fL (80.0-100.0); Nucleated Red Blood Cells % 0.0 %
[2025-08-27 06:12] LABS: INR 1.03 (0.9-1.15); Partial Thromboplastin Time 32.1 SEC (24.5-34.5); Prothrombin Time 10.9 sec (9.3-11.8)
[2025-08-27 06:15] LABS: Anion Gap 10 (5-15); Carbon Dioxide 25 mmol/L (20-31); Chloride 102 mmol/L (98-107); Potassium 4.4 mmol/L (3.5-5.1); Sodium 137 mmol/L (136-145)
[2025-08-27 06:17] LABS: Calcium 9.4 mg/dL (8.7-10.4)
[2025-08-27 06:22] LABS: BUN/Creatinine Ratio 18.2 (10.0-20.0)
[2025-08-27 06:25] LABS: Blood Urea Nitrogen 28 mg/dL (9-23); Glucose 144 mg/dL (74-106)
[2025-08-27] MEDS: IODIXANOL 320MG/ML 100ML BTL IV ONE (10:11)
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
[2025-08-27] MEDS: SODIUM CHLORIDE 0.9% 1,000 ML IV SCH (10:15)
[2025-08-27] MEDS: HEPARIN SODIUM (PORCINE) 5000 UNITS/ML 1ML VIAL ONE (10:17)
[2025-08-27] MEDS: fentaNYL CITRATE 100 MCG/2 ML VL ONE (10:17)
[2025-08-27] MEDS: MIDAZOLAM HCL 2MG/2ML 2ml VIAL (1mg/ml) ONE (10:17)
[2025-08-27] MEDS: SODIUM CHL 0.9% 0 ML ONE (10:17)
[2025-08-27] MEDS: ANGIOMAX 250 MG VIAL IV ONE (10:17)
[2025-08-27] MEDS: VERAPAMIL 2.5MG/ML INJ 2ML VIAL IV ONE (10:17)
[2025-08-27] MEDS: LIDOCAINE 2%HCL (LOCAL ANESTH.) INJ 20ML MDV ONE (10:18)
--- NOTE | 2025-08-27 10:40 | DVHPN2 ---
Progress Note Date Seen: Aug 27, 2025 Medical Necessity Reason Pt with a Central, PICC or Fol: No Subjective Patient reports: Feels better Objective vital signs Vital Sign Date Time Temp Pulse Resp B/P (MAP) Pulse Ox O2 Delivery O2 Flow Rate FiO2 08/27/25 09:00 98.1 96 16 122/77 (92) 97 98.1 08/26/25 20:00 Room Air* 0 21 Total Intake and Output 08/26/25 08/26/25 08/27/25 15:00 23:00 07:00 Intake Total 700 ml 800 ml Output Total 750 ml 1500 ml Balance -50 ml -700 ml medications Current Medications Medications Dose Ordered Sig/Lydia Route Start Time Stop Time Status Last Admin Dose Admin Acetaminophen/ Hydrocodone Bitart 1 tab Q4HP PRN PO 08/22/25 21:00 Ondansetron HCl 4 mg Q4HP PRN IV 08/22/25 21:00 Acetaminophen 650 mg Q6HP PRN PO 08/22/25 21:00 Morphine Sulfate 2 mg Q4HPRN PRN IV 08/22/25 21:00 08/26/25 20:49 2 MG Enoxaparin Sodium 40 mg DAILY SC 08/22/25 21:00 08/25/25 08:42 40 MG Insulin Glargine 15 units HS SC 08/22/25 22:00 08/26/25 21:59 15 UNITS Dextrose 50 ml UD PRN IV 08/22/25 21:00 Cancel Aspirin 81 mg DAILY PO 08/23/25 10:00 08/26/25 09:03 81 MG Atorvastatin Calcium 40 mg HS PO 08/22/25 22:00 08/26/25 21:57 40 MG Diagnostic Test (Pha) 1 strip ACHS 08/23/25 11:30 08/27/25 06:25 1 STRIP Insulin Human Regular HS SC 08/23/25 22:00 08/26/25 21:59 4 UNITS Insulin Human Regular AC SC 08/23/25 11:30 08/27/25 06:24 3 UNITS Dextrose 50 ml UD PRN IV 08/23/25 11:00 Metoprolol Succinate 25 mg DAILY PO 08/25/25 10:00 08/25/25 08:43 25 MG Sodium Chloride 1,000 ml @ 75 mls/hr [id number] IV 08/27/25 10:15 UNV Examination: GENERAL:Abnormal, HEENT:Abnormal, LUNGS:Abnormal, CVS:Abnormal, ABDOMEN:Abnormal laboratory and microbiology Laboratory Tests 08/27/25 04:38 Test 08/27/25 04:38 Range/Units Serum Glucose 144 H 74-106 mg/dL Problem List/Assessment/Plan Problem List/Assessment/Plan nstemi dm htn HL meth abuse s/p cath 3v cad asa lovenox statin recommend cabg eval at [facility] pt agrees to plan Plan discussed with: Patient My Orders My Orders Orders - DAWSON BARLOW MD Procedure Category Date Status Time Cl Left Heart Cath CL 08/27/25 Taken 10:01 Dietary Evaluation Review Recommendations by RD: Dietary education by RD Comments: 1) Continue 45g CCHO cardiac diet 2) Advise patient to limit intake of added sugar including sugar-sweetened beverages, pastries, dessert, etc. Eat a consistent intake of complex carbohydrates throughout the day, paired with protein to promote glycemic control 3) Refer to outpatient RD/CDCES for diabetes education and weight management 4) Consider referral to endocrinology 5) Follow-up with cardiology 6) Follow-up with social services analyst r/t methamphetamine abuse 7) Continue to monitor I&O, labs, and skin integrity Expected Outcomes/Goals: 1) appetite and labs to improve 2) gradual wt loss 3) f/u in 3-5 days Date of Service: Aug 27, 2025 Billing Provider: DAWSON BARLOW MD Common Visit Codes: NOT BILLABLE DAWSON BARLOW MD Aug 27, 2025 10:40
--- NOTE | 2025-08-27 10:44 | DVHOP2 ---
Operative Report Operative Report CARDIAC DIGITAL PERFORMANCE ANALYST PROCEDURE REPORT [place], [place] Date of Service: 08/27/25 Tinning Equipment Tender: Dawson Persaud MD PROCEDURES PERFORMED: Coronary angiogram, left heart catheterization, conscious sedation administration and supervision, less than 15 minutes; fluoroscopy use and interpretation. PREOPERATIVE DIAGNOSES: nstemi POSTOP DIAGNOSIS: 3v cad DESCRIPTION OF PROCEDURE: The patient or appropriate family signed informed consent understanding the risks, benefits and alternatives of the procedure, they wished to proceed. The patient was brought to the cardiac medical lab assistant in n.p.o. state. The patient was prepped in a sterile fashion. Sedation was used per cardiac cath protocol. I administered 2 mL of 2% lidocaine to the right wrist. With an antegrade front wall puncture. I cannulated the right radial artery and placed a 6-[place] slender. Next, an intra-arterial spasmolytic was administered. Next, a - 5French Tyler catheter and pitgail and were used for coronary angiogram and LVEDP measurement and pressure pullback. At the completion of procedure, all guides and wires were removed, and there were no immediate complications. 4000 U of IV Heparin given. 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 mid and distal RCA are patent with mild plaque. PDA is small with mild plaque. RPL1 has long tubular 80% stenosis LEFT MAIN: Moderate size left main, it bifurcates into LAD and circumflex. no severe stenosis. CIRCUMFLEX: Moderate caliber vessel coming off the left main. OM1 has a focal 85% stenosis, OM2 has a long tubular 70% stenosis. LAD: LAD is a moderate caliber vessel coming of the left main. prox LAD is patent with long tubular 50 % stenosis mid LAD has a haz 90% stenosis just distal to Diag bifurcation LVEDP of 9 mmhg CONCLUSIONS: 1. 3v cad PLAN: Aggressive risk factor modification and medical management for the patient. cabg DAWSON Santiago MD Aug 27, 2025 10:44
--- NOTE | 2025-08-27 15:23 | DVHDS2 ---
Discharge Summary Date of Admission Aug 22, 2025 at 21:13 Date of Discharge: Aug 27, 2025 Labs/Diagnostic Data: Laboratory Results Test 08/27/25 06:04 08/27/25 04:38 08/24/25 16:23 08/23/25 15:14 POC Glucose 172 mg/dl (70-106) White Blood Count 6.3 10^3/uL (4.4-10.8) Red Blood Count 4.91 10^6/uL (4.5-5.90) Hemoglobin 14.1 g/dL (13.5-17.5) Hematocrit 41.7 % (41.0-53.0) Mean Corpuscular Volume 84.9 fL (80.0-100.0) Mean Corpuscular Hemoglobin 28.7 pg (28.0-32.0) Mean Corpuscular Hemoglobin Concent 33.8 g/dL (32.0-36.0) Red Cell Distribution Width 13.3 % (11.8-14.3) Platelet Count 260 10^3/uL (140-450) Mean Platelet Volume 8.4 fL (6.9-10.8) Neutrophils (%) (Auto) 55.3 % (37.0-80.0) Lymphocytes (%) (Auto) 30.0 % (10.0-50.0) Monocytes (%) (Auto) 11.7 % (0.0-12.0) Eosinophils (%) (Auto) 2.3 % (0.0-7.0) Basophils (%) (Auto) 0.7 % (0.0-2.0) Neutrophils # (Auto) 3.5 10 ^3/uL (1.6-8.6) Lymphocytes # (Auto) 1.9 10 ^3/uL (0.4-5.4) Monocytes # (Auto) 0.7 10 ^3/uL (0-1.3) Eosinophils # (Auto) 0.1 10 ^3/uL (0-0.8) Basophils # (Auto) 0 10 ^3/uL (0-0.2) Nucleated Red Blood Cells 0.0 % Prothrombin Time 10.9 sec (9.3-11.8) Prothrombin Time INR 1.03 (0.9-1.15) Activated Partial Thromboplast Time 32.1 SEC (24.5-34.5) Sodium Level 137 mmol/L (136-145) Potassium Level 4.4 mmol/L (3.5-5.1) Chloride Level 102 mmol/L (98-107) Carbon Dioxide Level 25 mmol/L (20-31) Anion Gap 10 (5-15) Blood Urea Nitrogen 28 mg/dL (9-23) Creatinine 1.54 mg/dL (0.700-1.30) Glomerular Filtration Rate Calc 50 mL/min (>90) BUN/Creatinine Ratio 18.2 (10.0-20.0) Serum Glucose 144 mg/dL (74-106) Calcium Level 9.4 mg/dL (8.7-10.4) Free Thyroxine (T4) Calculated 0.86 ng/dL (0.89-1.76) Total Triiodothyronine (TT3) 0.90 ng/mL (0.60-1.81) Troponin I High Sensitivity 76 ng/L (</=54) Test 08/23/25 12:30 08/23/25 05:05 08/22/25 16:43 08/22/25 14:11 Hepatitis B Surface Antigen Negative (Negative) Hepatitis C Antibody Negative (Negative) Hemoglobin A1c > 14.0 % A1C (<5.7) Total Bilirubin 0.4 mg/dL (0.2-1.0) Aspartate Amino Transferase (AST) 15 U/L (13-40) Alanine Aminotransferase (ALT) 18 U/L (7-40) Alkaline Phosphatase 99 U/L (46-116) Total Protein 7.7 g/dL (5.7-8.2) Albumin 4.3 g/dL (3.2-4.8) Direct Bilirubin 0.1 mg/dL (<0.3) Thyroid Stimulating Hormone (TSH) 4.81 uIU/mL (0.55-4.78) Test 08/22/25 13:06 08/22/25 08:10 Plasma/Serum Blood Alcohol < 3.0 mg/dL (<10) Urine Color Light-yellow (Yellow) Urine Clarity Clear (Clear) Urine pH 5.0 (5.0-9.0) Urine Specific [place] 1.024 (1.001-1.035) Urine Protein Trace (Negative) Urine Ketones 1+ (Negative) Urine Blood Negative /uL (Negative) Urine Nitrite Negative (Negative) Urine Bilirubin Negative (Negative) Urine Urobilinogen Normal mg/dL (Negative) Urine Leukocyte Esterase Negative /uL (Negative) Urine RBC 2 /hpf (0 - 3) Urine Microscopic WBC 1 /HPF (0-3) Urine Squamous Epithelial Cells Few /hpf (<5) Urine Bacteria None seen /hpf (None Seen) Urine Glucose 4+ mg/dL (Normal) Urine Opiates Screen Neg (NEGATIVE) Urine Fentanyl Screen Neg (NEGATIVE) Urine Barbiturates Screen Neg (NEGATIVE) Urine Phencyclidine Screen Neg (NEGATIVE) Urine Amphetamines Screen Pos (NEGATIVE) Urine Benzodiazepines Screen Neg (NEGATIVE) Urine Cocaine Screen Neg (NEGATIVE) Urine Cannabinoids Screen Neg (NEGATIVE) Other Laboratory Tests 08/27/25 04:38 Brief Hx & Hospital Course: SEE DICTATED NOTE Condition at Discharge: Fair Final Diagnosis/Problems List CAD Discharge Disposition: Acute Care Facility Discharge Instruct/Medications Diet: Cardiac 2g Na,low cholest Activity: No Restrictions, As Tolerated Follow Up/Referral: GENTRY ADAMS Medications: PER DEC Discharge Statement: "Patient was advised to return to the ER or call 911 if any headaches, dizziness, shortness of breath, chest pain, abdominal pain, bleeding, fevers, or worsening of medical condition. Patient was counseled about treatment plan, medications, possible side effects, patientverbalized understanding. All questions were answered to the best of my ability. This discharge took greater then 30 minutes in planning, reviewing documentation, counseling the patient, and discussing with other team members." ASSESSMENT ASSESSMENT Assessment CAD Date of Service: Aug 27, 2025 Billing Provider: ULISES CHEN MD Common Visit Codes: [id number] DISCH DAY >30min ULISES CHEN MD Aug 27, 2025 15:23
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
[2025-08-27] MEDS: HYDROcodone-ACET 5/325MG TAB PO PRN (20:50)
--- NOTE | 2025-08-28 10:56 | ECG ---
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
== END 2025-08-27 23:10 | disposition short-term general hospital (02) | DRG 286 ==
LOC: ER 11:59 → OVERFLOW 21:13 → TELE-CENTR 08-23 16:23
PROVIDERS: ADMIT Internal Medicine; ATTEND Internal Medicine
PROC: 4A023N7 Measurement of Cardiac Sampling and Pressure, Left Heart, Percutaneous Approach (ICD-10-PCS; principal; 2025-08-27)
PROC: B211YZZ Fluoroscopy of Multiple Coronary Arteries using Other Contrast (ICD-10-PCS; 2025-08-27)
DX: I25.10 Atherosclerotic heart disease of native coronary artery without angina pectoris (principal); N17.0 Acute kidney failure with tubular necrosis; E11.9 Type 2 diabetes mellitus without complications; E87.5 Hyperkalemia; I10 Essential (primary) hypertension; F15.10 Other stimulant abuse, uncomplicated; E78.5 Hyperlipidemia, unspecified; Z66 Do not resuscitate; Z83.3 Family history of diabetes mellitus
CPT/HCPCS: 36415; 70450; 71045; 71046; 80048; 80053; 80076; 80307; 80320; 81001; 82962; 83036; 84132; 84439; 84443; 84480; 84484; 85025; 85610; 85730; 86803; 87340; 93005; 93306; 93458; 93886; 99152; 99291; G0378; J1815; J2250; Q9967